=== PATIENT | female | born 1935 | race African-American/Black ===

== ENCOUNTER 2016-12-14 10:49 | Emergency (ER) | payer OTHER ==
--- NOTE | 2016-12-14 11:37 | PROVIDER DOCUMENTATION ---
HPI-Rash/Wound/ReCheck - General Chief Complaint: Female Stated Complaint: ABSCESS Time Seen by Provider: 12/14/16 12:18 Source: patient Allergies/Adverse Reactions: Allergies Allergy/AdvReac Type Severity Reaction Status Date / Time Penicillins Allergy Severe RASH Verified 12/31/14 09:48 Home Medications: Home Medication List Medication Instructions Recorded Confirmed Last Taken Type Ciprofloxacin [Cipro] 250 mg PO QHS 05/26/14 12/31/14 05/25/14 History Fesoterodine E.r [Toviaz] 4 mg PO DAILY 05/26/14 12/31/14 05/26/14 History Furosemide [Lasix] 20 mg PO DAILY 05/26/14 12/31/14 05/26/14 History Isosorbide Mononitrate E.r. [Imdur] 30 mg PO DAILY 05/26/14 12/31/14 05/26/14 History Potassium Chloride 10 meq PO DAILY 05/26/14 12/31/14 05/26/14 History Sennosides/Docusate Sodium 1 tab PO BID 05/26/14 12/31/14 05/26/14 History [Docusate Sodium-Senna Tablet] Warfarin Sodium [Coumadin] 6 mg PO QHS 05/26/14 12/31/14 05/25/14 History Metoprolol Succinate E.r. [Toprol 25 mg PO DAILY #0 tablet 05/27/14 12/31/14 Unknown Rx Xl] Ciprofloxacin HCl [Cipro] 500 mg PO BID #14 tablet 12/19/14 12/31/14 Unknown Rx Fluconazole [Diflucan] 150 mg PO DAILY #0 tablet 12/19/14 12/31/14 Unknown Rx Sulfamethoxazole/Tmp D.s. [Septra 1 each PO BID #20 tablet 12/14/16 Unknown Rx Ds] - History of Present Illness-Dermatology Nature of Presenting Problem: 81 yo F presents to the ER with complaint of possible abscess to lower L labia, states some drainage at home. Location: reports: genitalia (L labia) Onset/Duration: reports: 1 week ago Context/Associated Symptoms: reports: abscess Review of Systems - Adult - REVIEW OF SYSTEMS - ADULT Constitutional: denies: chills, fever Eyes: reports: no symptoms reported Ears, Nose, Mouth & Throat: reports: no symptoms reported Cardiovascular: reports: no symptoms reported Respiratory: reports: no symptoms reported Gastrointestinal: reports: no symptoms reported Genitourinary: reports: no symptoms reported Musculoskeletal: reports: no symptoms reported Integumentary: reports: see HPI, other (abscess) Neurological: reports: no symptoms reported Psychiatric: reports: no symptoms reported Endocrine: reports: no symptoms reported Hematologic/Lymphatic: reports: no symptoms reported Allergic/Immunologic: reports: no symptoms reported All Other Systems: Reviewed and Negative Past History - Adult - PAST MEDICAL HISTORY-ADULT Review of Records: reports: Nursing Assessment Review, Medications Reviewed Cardiovascular: reports: A-Fib, HTN Genitourinary: reports: incontinence, chronic UTI's Musculoskeletal: reports: arthritis Neurological: reports: CVA, other (looses balance) - PRIOR SURGERIES/PROCEDURES Surgical/Procedure History: reports: hysterectomy, other (veins removed; 5 bladder tacks) - IMMUNIZATION STATUS Childhood Immunizations: See Nurse Assessment Flu Vaccine: See Nurse Assessment Physical Exam-General - PHYSICAL EXAM-ADULT Initial Vital Signs Reviewed: Yes - CONSTITUTIONAL General Appearance: alert, no apparent distress - EYES Eyes: PERRL/EOMI, pink conjunctivae - HEAD, EARS, NOSE, MOUTH & THROAT HENMT: normocephalic/atraumatic, normal ENT inspection - NECK Neck: supple, normal inspection - RESPIRATORY Respiratory: no respiratory distress, no accessory muscle use - CARDIOVASCULAR Cardiovascular: normal peripheral pulses, regular rate, rhythm - GENITOURINARY Female Genitalia/Pelvic Exam: other (.5in ulcerated lesion with hole in center that has been draining to lower L labia, no fluctuance) - MUSCULOSKELETAL Back Exam: no CVA tenderness, no vertebral tenderness Extremity: normal gait, normal inspection - SKIN Integumentary: normal color, warm/dry - NEUROLOGIC Neurologic: grossly normal, no motor/sensory deficits - PSYCHIATRIC Psych/Mental Status: normal mood/affect, normal thought content, normal thought process, oriented x 3 Progress - PLAN OF CARE/RESULTS Progress/Plan/Lab Results: Vital Signs Temp Pulse Resp BP Pulse Ox 12/14/16 11:05 98 F 62 18 164/83 98 Penicillins Allergy (Severe, Verified 12/31/14 09:48) RASH itching Ciprofloxacin [Cipro] 250 mg PO QHS 05/26/14 Fesoterodine E.r [Toviaz] 4 mg PO DAILY 05/26/14 Furosemide [Lasix] 20 mg PO DAILY 05/26/14 Isosorbide Mononitrate E.r. [Imdur] 30 mg PO DAILY 05/26/14 Potassium Chloride 10 meq PO DAILY 05/26/14 Sennosides/Docusate Sodium [Docusate Sodium-Senna Tablet] 1 tab PO BID 05/26/14 Warfarin Sodium [Coumadin] 6 mg PO QHS 05/26/14 Metoprolol Succinate E.r. [Toprol Xl] 25 mg PO DAILY #0 tablet 05/27/14 Ciprofloxacin HCl [Cipro] 500 mg PO BID #14 tablet 12/19/14 Fluconazole [Diflucan] 150 mg PO DAILY #0 tablet 12/19/14 Departure - Departure Time of Disposition Order: 12:20 DIAGNOSIS: Vulvar lesion Disposition: HOME 01 Certified Medical Emergency: Emergent Condition: Stable Additional Instructions: Follow up with Dr. Kent ED Follow Up Instructions: You have been treated by a care provider in the Emergency Department. These instructions are being provided to you so you can have an understanding of how to care for yourself upon discharge. Upon discharge from the Emergency Department, you are responsible for making arrangements for follow-up care by a physician of your choice. Take all prescribed medications as directed. Return to the Emergency Department immediately for any new or worsening symptoms. You may call the Physician Referral phone number at [phone] to obtain a list of Physicians who are taking new patients. Prescriptions: Sulfamethoxazole/Tmp D.s. [Septra Ds] 1 each PO BID #20 tablet Referrals: Bob Kent MD [Primary Care Provider] - Attestation - Scribe Verification/Attestation Scribe:: Yoli Stein Acting as Scribe for:: Gio Samuels Scribe documention review:: This chart was documented by a scribe and accurately reflects the service the provider performed and the decisions made by the provider.
[2016-12-14 12:37] VITALS: BP 131/68
== END 2016-12-14 13:00 | disposition home or self-care (01) ==
LOC: P.ED 10:49
DX: N89.9 Noninflammatory disorder of vagina, unspecified (principal); I48.91 Unspecified atrial fibrillation; I10 Essential (primary) hypertension; Z87.440 Personal history of urinary (tract) infections; M19.90 Unspecified osteoarthritis, unspecified site; Z86.73 Personal history of transient ischemic attack (TIA), and cerebral infarction without residual deficits; R26.81 Unsteadiness on feet; Z79.899 Other long term (current) drug therapy; Z79.01 Long term (current) use of anticoagulants
CPT/HCPCS: 99282